=== PATIENT | female | born 1940 | race Two or more races ===

== ENCOUNTER 2024-04-17 10:14 | Day surgery (SDC) | payer MEDICARE ==
[~2024-04-17] VITALS: Ht 152.4 cm; Wt 82.2 kg
[~2024-04-17 10:14] MED LIST: AMLO1TAB25 PO; ATEN100T PO; FURO40TA2 PO; LISI20TA35 PO; OMEP-173 PO; PHENYLEPHRINE 10% OPHTH SOL 5ML OS PRN; POTA1TAB23 PO; SIMV40TA20 PO; VITA400C50 PO
[2024-04-17] MEDS ORDERED: MIDAZOLAM INJ 2MG/2ML VIAL As Ordered ONE (10:51)
[2024-04-17] MEDS: OFLOXACIN 0.3 % (OCUFLOX) OPTH SOL 5ML OS ONE (11:00)
[2024-04-17] MEDS ORDERED: fentaNYL 100 MCG/2 ML INJECTION As Ordered ONE (11:03)
[2024-04-17] MEDS: ATROPINE SULFATE 1% OPHTH SOLN 2ML BTL OS SCH (11:15)
[2024-04-17] MEDS: LIDOCAINE 3.5 % 1ML OPHTH TOPICAL GEL OU ONE (11:15)
[2024-04-17] MEDS: PHENYLEPHRINE 2.5% OPHTH SOL 2ML OS SCH (11:16)
[2024-04-17] MEDS: TROPICAMIDE 1% OPHTH SOLN 15ML OS SCH (11:16)
[2024-04-17] MEDS: CEFUROXIME 1MG/0.1ML INTRACAMERAL INJ As Ordered ONE (11:38)
[2024-04-17] MEDS: LIDOCAINE 1% SDV 5ML VIAL As Ordered ONE (11:38)
[2024-04-17] MEDS: BSS IRRIG/VANCO(10MG)/TOBRA(5MG)/EPINEPH(1:1000-0.5CC)500ML BAG-ORONLY As Ordered ONE (11:38)
[2024-04-17 11:50] VITALS: BP 130/61; TEMP 97.1; O2SAT 98
== END 2024-04-17 12:05 | disposition home or self-care (01) ==
LOC: M SDC 10:14
PROVIDERS: ATTEND Ophthalmology
DX: H25.12 Age-related nuclear cataract, left eye (principal); I10 Essential (primary) hypertension; E78.00 Pure hypercholesterolemia, unspecified; Z79.899 Other long term (current) drug therapy; Z90.710 Acquired absence of both cervix and uterus
CPT/HCPCS: 66984; J0697; J2250; J3010; V2632

== ENCOUNTER 2024-04-24 08:11 | Day surgery (SDC) | payer MEDICARE ==
[~2024-04-24] VITALS: Ht 162.6 cm; Wt 81.6 kg
[~2024-04-24 08:11] MED LIST changes: +PHENYLEPHRINE 10% OPHTH SOL 5ML OD PRN; -PHENYLEPHRINE 10% OPHTH SOL 5ML OS PRN
[2024-04-24] MEDS: OFLOXACIN 0.3 % (OCUFLOX) OPTH SOL 5ML OD ONE (08:40)
[2024-04-24] MEDS: TROPICAMIDE 1% OPHTH SOLN 15ML OD SCH (08:40)
[2024-04-24] MEDS: ATROPINE SULFATE 1% OPHTH SOLN 2ML BTL OD SCH (08:40)
[2024-04-24] MEDS: PHENYLEPHRINE 2.5% OPHTH SOL 2ML OD SCH (08:40)
[2024-04-24] MEDS: LIDOCAINE 3.5 % 1ML OPHTH TOPICAL GEL OU ONE (08:41)
[2024-04-24] MEDS ORDERED: fentaNYL 100 MCG/2 ML INJECTION As Ordered ONE (09:26)
[2024-04-24] MEDS ORDERED: MIDAZOLAM INJ 2MG/2ML VIAL As Ordered ONE (09:26)
[2024-04-24] MEDS: BSS IRRIG/VANCO(10MG)/TOBRA(5MG)/EPINEPH(1:1000-0.5CC)500ML BAG-ORONLY As Ordered ONE (09:27)
[2024-04-24] MEDS: LIDOCAINE 1% SDV 5ML VIAL As Ordered ONE (09:27)
[2024-04-24] MEDS: CEFUROXIME 1MG/0.1ML INTRACAMERAL INJ As Ordered ONE (09:28)
[2024-04-24 09:40] VITALS: BP 130/62; TEMP 98.3; O2SAT 98
== END 2024-04-24 10:09 | disposition home or self-care (01) ==
LOC: M SDC 08:11
PROVIDERS: ATTEND Ophthalmology
DX: H25.11 Age-related nuclear cataract, right eye (principal); Z98.42 Cataract extraction status, left eye; Z88.1 Allergy status to other antibiotic agents; Z79.899 Other long term (current) drug therapy
CPT/HCPCS: 66984; J0697; J2250; J3010; V2632